=== PATIENT | female | born 1985 | race Asian ===

== ENCOUNTER 2022-12-12 07:26 | Day surgery (SDC) | payer OTHER ==
[~2022-12-12] VITALS: Ht 180.3 cm; Wt 72.6 kg
[~2022-12-12 07:26] MED LIST: FEMARA2.5 MG PO
[2022-12-12] MEDS ORDERED: TRAM1TAB98 PO (13:36)
== END 2022-12-12 16:20 | disposition home or self-care (01) ==
LOC: CIR.AMB 07:26
PROVIDERS: ATTEND Surgery
DX: C50.011 Malignant neoplasm of nipple and areola, right female breast (principal); Z20.822 Contact with and (suspected) exposure to COVID-19; I10 Essential (primary) hypertension

== ENCOUNTER 2023-05-29 05:22 | Day surgery (SDC) | payer OTHER ==
[2023-05-26 09:37] LABS: PH,URINE 6.5 (5.0-8.0); URINE APPEARANCE Clear; URINE BILIRRUBIN Negative (NEGATIVE); URINE BLOOD Negative; URINE COLOR Yellow; URINE GLUCOSE Negative (NEGATIVE); URINE LEUKOCYTE Moderate; URINE NITRATE Negative; URINE PROTEIN Negative (NEGATIVE); URINE UROBILINOGEN 0.2 E.U./dl
[2023-05-26 09:37] LABS: HEMATOCRIT 38.1 % (36.0-45.00); MEAN CELL VOLUME 85.1 fL (80.00-100.00); MEAN CORPUSCULAR HEMOGLOBIN 29.1 pg (27.00-32.0); MEAN CORPUSCULAR HGB CONC 34.1 g/dl (32.0-36.0); PLATELET COUNT 281 K/uL (150-450); RED BLOOD COUNT 4.48 M/uL (4.00-6.00); RED CELL DISTRIBUTION WIDTH 15.5 % (11.5-14.5)
[2023-05-26 09:41] LABS: URINE BACTERIA 157.4 uL (0.0-1933); URINE RBC 2.1 uL (0.0-20.8); URINE WBC 61.3 uL (0.0-23.2)
[2023-05-26 09:58] LABS: PARTIAL THROMBOPLASTIN TIME 28.3 SECONDS (22.0-34.0); PROTHROMBIN TIME 10.5 SECONDS (9.0-11.5)
[2023-05-26 10:14] LABS: ALBUMIN 3.9 gm/dL (3.4-5.0); BILIRUBIN TOTAL 0.54 mg/dL (0.3-1.2); CREATININE SERUM 0.75 mg/dL (0.55-1.02); GFR 86.03; GLOBULINA 2.9 G/DL (2.4-3.5); POTASSIUM 4.14 mEq/L (3.5-5.1); TOTAL PROTEIN 6.8 gm/dL (6.4-8.2)
[~2023-05-29] VITALS: Ht 180.3 cm; Wt 68.0 kg
[~2023-05-29 05:22] MED LIST changes: +TRAM1TAB98 PO
[2023-05-29] MEDS ORDERED: POVIDONE-IODINE SCRUB 118 ML BOTT TOP ONE ×3 (08:06→14:45)
[2023-05-29] MEDS ORDERED: EPINEPHRINE HCL/PF 1 MG/ML AMPUL ONE (08:06)
[2023-05-29] MEDS ORDERED: POVIDONE-IODINE 118 ML BOTT TOP ONE ×6 (08:07→17:30)
[2023-05-29] MEDS ORDERED: CEFAZOLIN SODIUM 1,000 MG VIAL ONE ×2 (08:09→13:10)
[2023-05-29] MEDS ORDERED: VANCOMYCIN HCL 1,000 MG VIAL ONE (08:09)
[2023-05-29] MEDS ORDERED: CLINDAMYCIN PHOSPHATE 150 MG/ML (900mg) ONE (13:03)
[2023-05-29] MEDS ORDERED: GENTAMICIN SULFATE 40 MG/ML VIAL ONE (13:10)
[2023-05-29] MEDS ORDERED: BUPIVACAINE HCL/PF 0.5% 1ML ONE (13:10)
[2023-05-29] MEDS ORDERED: CHLORHEXIDINE GLUCONATE 120 ML BOTTLE TOP ONE (13:11)
[2023-05-29] MEDS ORDERED: CLINDAMYCIN PHOSPHATE 150 MG/ML (900mg) IV ONE (14:30)
[2023-05-29] MEDS ORDERED: BUPIVACAINE HCL/PF 2.5 MG/ML 30ML VIAL InF ONE (14:45)
[2023-05-29] MEDS ORDERED: GENTAMICIN SULFATE 40 MG/ML VIAL IR ONE (15:30)
[2023-05-29] MEDS ORDERED: CEFAZOLIN SODIUM 1,000 MG VIAL IV ONE (15:30)
[2023-05-29] MEDS ORDERED: BUPIVACAINE HCL/PF 0.5% 30ML ML ONE (16:39)
[2023-05-29] MEDS ORDERED: NITROGLYCERIN 1 INCH OINT..GM. TD ONE ×2 (17:05→17:30)
[2023-05-29] MEDS ORDERED: BUPIVACAINE HCL/PF 0.5% 5MG/ML VIAL IJ ONE (17:30)
== END 2023-05-29 22:15 | disposition home or self-care (01) ==
LOC: CIR.AMB 05:22
PROVIDERS: ATTEND Surgery
DX: C50.511 Malignant neoplasm of lower-outer quadrant of right female breast (principal); C77.3 Secondary and unspecified malignant neoplasm of axilla and upper limb lymph nodes; N60.22 Fibroadenosis of left breast; D48.62 Neoplasm of uncertain behavior of left breast; Z90.13 Acquired absence of bilateral breasts and nipples; I10 Essential (primary) hypertension; Z20.822 Contact with and (suspected) exposure to COVID-19; E11.9 Type 2 diabetes mellitus without complications
CPT/HCPCS: 19301; 38525; A9541

== ENCOUNTER 2023-12-14 09:00 | Inpatient (IN) | payer OTHER ==
[~2023-12-14 09:00] MED LIST changes: +LYNPARZA150 MG PO; +TAMOXIFEN CITRA20 MG PO
[2023-12-14] MEDS ORDERED: ANASTROZOLE1 MG (10:36)
[2023-12-14 11:28] LABS: HEMATOCRIT 37.1 % (36.0-45.00); HEMOGLOBIN 13.2 g/dL (12.0-15.00); MEAN CELL VOLUME 95.2 fL (80.00-100.00); MEAN CORPUSCULAR HEMOGLOBIN 33.9 pg (27.00-32.0); MEAN CORPUSCULAR HGB CONC 35.6 g/dl (32.0-36.0); PLATELET COUNT 191 K/uL (150-450); RED CELL DISTRIBUTION WIDTH 16.7 % (11.5-14.5)
[2023-12-14 11:45] LABS: PH,URINE 5.5 (5.0-8.0); URINE APPEARANCE Clear; URINE BILIRRUBIN Negative (NEGATIVE); URINE BLOOD Negative; URINE COLOR Yellow; URINE GLUCOSE Negative (NEGATIVE); URINE KETONE Negative (NEGATIVE); URINE LEUKOCYTE Negative; URINE NITRATE Negative; URINE PROTEIN Negative (NEGATIVE); URINE UROBILINOGEN 0.2 E.U./dl
[2023-12-14 11:50] LABS: URINE BACTERIA 181.4 uL (0.0-1933); URINE EPITHELIAL CELLS 13.2 uL (0.0-38.8)
[2023-12-14 11:54] LABS: INR 0.97; PARTIAL THROMBOPLASTIN TIME 26.9 SECONDS (22.0-34.0); PROTHROMBIN TIME 10.6 SECONDS (9.0-11.5)
[2023-12-14 12:13] LABS: ALBUMIN 4.2 gm/dL (3.4-5.0); BILIRUBIN TOTAL 1.1 mg/dL (0.3-1.2); CREATININE SERUM 0.92 mg/dL (0.55-1.02); GFR 67.96; GLOBULINA 3.2 G/DL (2.4-3.5); POTASSIUM 4.52 mEq/L (3.5-5.1); TOTAL PROTEIN 7.4 gm/dL (6.4-8.2)
[2023-12-14 12:14] LABS: URINE CAST 0.15 uL (0.0-1.40)
[2023-12-17] MEDS ORDERED: POVIDONE-IODINE 118 ML BOTT TOP ONE (07:14)
[2023-12-17] MEDS ORDERED: CEFOXITIN SODIUM 2,000 MG VIAL IV ONE (07:15)
[2023-12-17] MEDS ORDERED: VISTASEAL DUAL APPICATOR 1 EACH APPL TOP ONE (07:17)
[2023-12-17] MEDS ORDERED: THROMBIN,HU/FIBRINOGEN/CALCIUM 10 ML SYRINGE TOP ONE (07:17)
[2023-12-17] MEDS ORDERED: ONDANSETRON HCL 2 MG/ML VIAL IV PRN (10:15)
[2023-12-17] MEDS ORDERED: RINGERS SOLUTION,LACTATED 1,000 ML IV SCH (10:15)
[2023-12-17] MEDS ORDERED: SUGAMMADEX SODIUM 200 MG/2 ML VIAL IV ONE (10:16)
[2023-12-17] MEDS ORDERED: MORPHINE SULFATE 4 MG/ML CARTRIDGE IV PRN (10:30)
[2023-12-17] MEDS ORDERED: ONDANSETRON HCL 2 MG/ML VIAL ONE (12:58)
[2023-12-17] MEDS ORDERED: SIMETHICONE 125 MG CAPSULE PO SCH (13:00)
[2023-12-17] MEDS ORDERED: MEPERIDINE HCL 25 MG/ML AMPUL IV ONE (13:10)
[2023-12-17 15:28] LABS: HEMATOCRIT 35.2 % (36.0-45.00); HEMOGLOBIN 12.4 g/dL (12.0-15.00); MEAN CELL VOLUME 95.4 fL (80.00-100.00); MEAN CORPUSCULAR HEMOGLOBIN 33.6 pg (27.00-32.0); MEAN CORPUSCULAR HGB CONC 35.2 g/dl (32.0-36.0); PLATELET COUNT 187 K/uL (150-450); RED BLOOD COUNT 3.69 M/uL (4.00-6.00); RED CELL DISTRIBUTION WIDTH 16.7 % (11.5-14.5)
[2023-12-17 15:53] LABS: CALCIUM 9.4 mg/dL (8.5-10.1); CREATININE SERUM 0.87 mg/dL (0.55-1.02); GFR 72.49; POTASSIUM 4.04 mEq/L (3.5-5.1)
[2023-12-17] MEDS ORDERED: KETOROLAC TROMETHAMINE 30 MG VIAL IV SCH (17:00)
[2023-12-17] MEDS ORDERED: CEFOXITIN SODIUM 2,000 MG VIAL IV SCH (17:00)
[2023-12-17] MEDS ORDERED: DOCUSATE SODIUM 100MG CAP PO SCH (21:00)
[2023-12-17] MEDS ORDERED: FAMOTIDINE/PF 20 MG/2 ML VIAL IV SCH (21:00)
[2023-12-18 01:38] LABS: HEMATOCRIT 32.2 % (36.0-45.00); HEMOGLOBIN 11.3 g/dL (12.0-15.00); MEAN CELL VOLUME 96.1 fL (80.00-100.00); MEAN CORPUSCULAR HEMOGLOBIN 33.8 pg (27.00-32.0); MEAN CORPUSCULAR HGB CONC 35.1 g/dl (32.0-36.0); PLATELET COUNT 166 K/uL (150-450); RED BLOOD COUNT 3.35 M/uL (4.00-6.00); RED CELL DISTRIBUTION WIDTH 16.5 % (11.5-14.5)
[2023-12-18 01:57] LABS: CALCIUM 9.3 mg/dL (8.5-10.1); CREATININE SERUM 0.87 mg/dL (0.55-1.02); GFR 72.49; POTASSIUM 4.72 mEq/L (3.5-5.1)
[2023-12-18] MEDS ORDERED: ENOXAPARIN SODIUM 40 MG/0.4 ML SYRINGE SUBCUTANEO SCH (09:00)
== END 2023-12-18 10:47 | disposition home or self-care (01) | DRG 743 ==
LOC: O/R 12-17 06:15 → SURH 12-17 09:00 → OB/GYN 12-17 11:49 → SURH 12-17 13:00 → OB/GYN 12-18 10:47
PROVIDERS: Obstetrics & Gynecology; ADMIT Obstetrics & Gynecology Gynecologic Oncology; ATTEND Obstetrics & Gynecology Gynecologic Oncology
PROC: 0UT74ZZ Resection of Bilateral Fallopian Tubes, Percutaneous Endoscopic Approach (ICD-10-PCS; 2023-12-17)
PROC: 0UT24ZZ Resection of Bilateral Ovaries, Percutaneous Endoscopic Approach (ICD-10-PCS; 2023-12-17)
PROC: 0TBB4ZZ Excision of Bladder, Percutaneous Endoscopic Approach (ICD-10-PCS; 2023-12-17)
PROC: 8E0W4CZ Robotic Assisted Procedure of Trunk Region, Percutaneous Endoscopic Approach (ICD-10-PCS; 2023-12-17)
PROC: 0UT94ZZ Resection of Uterus, Percutaneous Endoscopic Approach (ICD-10-PCS; principal; 2023-12-17 13:00)
DX: N84.0 Polyp of corpus uteri (principal); N72 Inflammatory disease of cervix uteri; N80.A0 Endometriosis of bladder, unspecified depth; Z20.822 Contact with and (suspected) exposure to COVID-19; Z85.3 Personal history of malignant neoplasm of breast
CPT/HCPCS: 58571; 58662; S2900